=== PATIENT | female | born 1995 | race Two or more races ===

== ENCOUNTER 2020-05-23 15:42 | Emergency (ER) | payer SELFPAY ==
[~2020-05-23] VITALS: Ht 154.9 cm; Wt 81.6 kg
[2020-05-23] MEDS ORDERED: EPINEPHRINE (1:1000) 1 MG/ML AMPUL ONE (15:53)
--- NOTE | 2020-05-23 15:55 | NUR ---
pateint came in to the er c/o left face numbness s/p eating fruit tart, took claritin 45 mins [employer]. On room air, breathing evenly and unlabored. connected to the monitor and pulse ox. kept comfortable, will continue to monitor accordingly.
[2020-05-23] MEDS ORDERED: EPINEPHRINE (1:1000) MDV 30 MG/30ML VIAL SUBCUT ONE (16:00)
[2020-05-23 16:17] VITALS: BP 135/81
--- NOTE | 2020-05-23 16:17 | NUR ---
Patient discharged to home in stable condition. Written and verbal after care instructions given. Patient verbalizes understanding of instruction.
== END 2020-05-23 16:17 | disposition home or self-care (01) ==
LOC: ER 15:47
DX: T78.1XXA Other adverse food reactions, not elsewhere classified, initial encounter (principal); X58.XXXA Exposure to other specified factors, initial encounter
CPT/HCPCS: 96372; 99283; J0171

== ENCOUNTER 2020-06-01 10:26 | Emergency (ER) | payer SELFPAY ==
[~2020-06-01] VITALS: Ht 154.9 cm; Wt 81.6 kg
[2020-06-01 10:32] VITALS: BP 130/92
--- NOTE | 2020-06-01 10:55 | NUR ---
PT SEEN AND EXAMINED BY .
[2020-06-01] MEDS ORDERED: FLUORESCEIN SODIUM OPHTH 1 EA STRIP OP ONE (11:00)
[2020-06-01] MEDS ORDERED: TETRAcaine 5 ML BOTTLE EACHEYE ONE (11:00)
[2020-06-01] MEDS ORDERED: FLUORESCEIN SODIUM OPHTH 1 EA STRIP ONE (11:12)
--- NOTE | 2020-06-01 12:00 | NUR ---
Patient discharged to home in stable condition. Written and verbal after care instructions given. Patient verbalizes understanding of instruction.
== END 2020-06-01 12:03 | disposition home or self-care (01) ==
LOC: ER 10:26
DX: H10.89 Other conjunctivitis (principal); B99.8 Other infectious disease

== ENCOUNTER 2020-10-19 12:32 | Emergency (ER) | payer BC, OTHER ==
[~2020-10-19] VITALS: Ht 154.9 cm; Wt 81.6 kg
[2020-10-19 13:18] VITALS: BP 131/84
== END 2020-10-19 13:26 | disposition home or self-care (01) ==
LOC: ER 12:40
DX: Z20.828 Contact with and (suspected) exposure to other viral communicable diseases (principal)
CPT/HCPCS: 99283; C9803; U0003

== ENCOUNTER 2023-05-17 09:57 | Outpatient (CLI) | payer BC | END 2023-05-17 23:59 | disposition home or self-care (01) | LOC: LAB 09:57 | PROVIDERS: ATTEND Nurse Practitioner Acute Care | DX: Z00.00 Encounter for general adult medical examination without abnormal findings (principal) ==